=== PATIENT | male | born 1945 | race Caucasian/White ===

== ENCOUNTER 2019-02-13 12:43 | Emergency (ER) | payer MEDICARE, BC ==
[~2019-02-13] VITALS: Ht 177.8 cm; Wt 87.3 kg
[~2019-02-13 12:43] MED LIST: SINEQUAN 1010 MG/CAP PO; SINEQUAN150 MG PO
[2019-02-13 13:01] VITALS: BP 146/76; PULSE 50; TEMP 97.6
[2019-02-13] MEDS ORDERED: COUMADIN 5MG5 MG/TAB PO (13:31)
[2019-02-13 13:41] LABS: BASO % 0.9 % (0.0-2.0); EOS # 0.1 (0.0-0.7); EOS % 1.5 % (0-4.0); GRAN # 2.7 (1.4-6.5); GRAN % 60.4 % (42.2-75.2); HEMOGLOBIN 15.3 g/dl (13.5-18.0); LYMPH # 1.2 (1.2-3.4); LYMPH % 26.8 % (20.0-51.0); MEAN CELL VOLUME 95 fl (80.0-100.0); MEAN CORPUSCULAR HEMOGLOBIN 32 pg (27.0-31.0); MEAN CORPUSCULAR HGB CONC 34 g/dl (33.0-37.0); MEAN PLATELET VOLUME 9.5 fl (7.4-10.4); MONO # 0.5 (0.1-0.6); MONO % 10.2 % (1.7-9.3); PLATELET COUNT 204 K/mm3 (130-400); RED BLOOD COUNT 4.76 M/mm3 (4.20-5.60); REDCELL DISTRIBUTION WIDTH-CV 12.8 % (11.5-14.5)
[2019-02-13 13:54] LABS: ALANINE AMINOTRANSFERASE 19 U/L (21-72); ALBUMIN 3.9 gm/dL (3.5-5.0); ALKALINE PHOSPHATASE 48 U/L (50-136); ANION GAP 4 mmol/L (7-16); AST,SGOT 24 U/L (15-37); BILIRUBIN,TOTAL 0.8 mg/dL (0.0-1.0); BLOOD UREA NITROGEN 18 mg/dL (9-20); CALCIUM 8.7 mg/dL (8.4-10.2); CARBON DIOXIDE 30 mmol/L (22-30); CHLORIDE 105 mmol/L (98-107); CREATININE, serum 1.05 mg/dL (0.66-1.25); GLUCOSE 74 mg/dL (74-106); POTASSIUM 4.2 mmol/L (3.4-5.0); SODIUM 139 mmol/L (137-145); TOTAL PROTEIN 6.9 gm/dL (6.4-8.2)
[2019-02-13 13:55] LABS: C-REACTIVE PROTEIN < 0.5 mg/dL (0.0-0.9)
[2019-02-13 14:21] LABS: ERYTHROCYTE SEDIMENTATION RATE 4 mm/hr (0-30)
[2019-02-13 14:37] LABS: PROTHROMBIN TIME 18.9 SECONDS (9.7-12.8)
[2019-02-13 14:38] LABS: INR 1.7 (0.8-3.0); PARTIAL THROMBOPLASTIN TIME 45.8 SECONDS (26.0-37.0)
== END 2019-02-13 16:04 | disposition home or self-care (01) ==
LOC: COL.ER 12:43
PROVIDERS: Emergency Medicine
DX: M54.5 Low back pain (principal); Z79.01 Long term (current) use of anticoagulants

== ENCOUNTER → 2019-02-18 | Outpatient (CLI) | payer MEDICARE, BC ==
[~2019-02-18] MED LIST changes: +COUMADIN 5MG5 MG/TAB PO
== END ==
LOC: COL.RAD 08:04
DX: M48.061 Spinal stenosis, lumbar region without neurogenic claudication (principal); M47.24 Other spondylosis with radiculopathy, thoracic region; Q06.9 Congenital malformation of spinal cord, unspecified

== ENCOUNTER → 2024-05-14 | Outpatient (CLI) | payer MEDICARE, BC ==
[~2024-05-14] MED LIST changes: +ATARAX 25MG25 MG/TAB PO; +Albuterol 0.083% Neb Soln 2.5 MG/3 ML UD IH ONE; +CIALIS2.5 MG PO; +COUMADIN 1MG1 MG/TAB PO
== END ==
LOC: COL.CARD 05:17
DX: R06.09 Other forms of dyspnea (principal)